=== PATIENT | male | born 1965 | race Caucasian/White ===

== ENCOUNTER 2024-06-13 09:14 | Outpatient (AMB) | payer BC, SELFPAY ==
--- NOTE | 2024-06-13 09:15 | A.SPINEOV_ITS ---
Vital Signs 06/13/24 09:23 Height 5 ft 6 in Weight 270 lb BMI 43.6 Intake Visit Reasons: lower back pain Intake Note: Mr. Ortiz is here today c/o Extreme low back pain that radiates down to the legs. Software Quality Manager Required: No Allergies amoxicillin Allergy (Severe, Verified 06/13/24 09:25) Stomach Upset Physical Exam Vital Signs: BMI result Body Mass Index 43.6 Assessment & Plan Assessment & Plan (1) Neurogenic claudication: Code(s): R29.818 - Other symptoms and signs involving the nervous system Category: Medical Plan Dear colleague Thank you for referring Patrick Ortiz to the office today with a chief complaint of bilateral leg pain. 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 The symptoms have been going on for decades. Sitting down improves the symptoms. He exhausted all forms of conservative treatments including multiple cortisone shots. I saw him in my previous clinic and was not able to establish a surgical cause for symptoms. He returns to my clinic for another second-look as he can not longer take the pain. PMH: None Medications: None Allergies: Amoxicillin Social history: Employed Physical Exam: Pleasant male height 5'6 weight 270 lb. No neurological deficits for motor sensation or reflexes. Straight leg raise is negative. Radiological Studies: MRI done at [facility] shows mild degenerative changes. More importantly, there is no central or foraminal stenosis. Impression/Plan: This patient is clinically suffering from neurogenic claudication without radiological stenosis. Unfortunately, I do not have a surgical option. I will refer him to our pain management team to see if he is a candidate for a spinal cord stimulator Thank you for allowing me to participate in your patients care. total time spent was 30 minutes in counseling ,coordination of plan, personal review of imaging, surgical decision making and subsequent plan Johnnie Sousa MD, PhD Spine Fellowship Trained Neurosurgeon Director, [facility] Orders: Referrals Pain Management Referral R29.818 - Other symptoms and signs involving the nervous system Coding Level of Care Code New Pt Level 3 (18225) Diagnoses Neurogenic claudication R29.818
[2024-06-13 09:23] VITALS: BMI 43.6
--- OUTSIDE RECORDS SUMMARY | 2024-06-13 09:40 | XMS_ITS | Clinical Summary ---
Author Organization [facility] Address [address] [place] [address] Care Team Providers Care Water Rights Specialist Name Role Phone Ashley Fam MD Primary Care Provider [phone] Social History Tobacco Use Types Packs/Day Years Used Date Smoking Tobacco: Never Assessed Sex and Gender Information Value Date Recorded Sex Assigned at Not on file Gender Identity Not on file Sexual Orientation Not on file Plan of Treatment Health Maintenance Due Date Last Done Comments Hepatitis C Screening 1965 COVID-19 Vaccine (#1) 02/12/1964 Depression Screening 1975 Preventative Health Evaluation 08/12/1981 DTap / Tdap / Td (1 - Tdap) 08/12/1982 Colon Cancer Screening (Colonoscopy) 08/12/2008 Shingrix-Zoster Vaccine (1 of 2) 08/12/2013 Influenza Vaccine (#1) 2023 RSV Adult > 60+ Yrs or Pregn ant (1 - 1-dose 75+ series) 08/12/2038 Hepatitis B Vaccines Aged Out No long er eligible based on patient's age to complete this topic Pneumococcal Vaccine Aged Out No long er eligible based on patient's age to complete this topic RSV Ped < 20 months Aged Out No longe r eligible based on patient's age to complete this topic Care Teams Water Rights Specialist Relationship Specialty Start Date End Date Ashley Fam MD [address] [facility] [address] [place] [address] PCP - General Rehabilitation Services Manager 03/31/20
--- OUTSIDE RECORDS SUMMARY | 2024-06-13 09:40 | XMS_ITS | Clinical Summary ---
Author Organization [facility] Address [address] [place] [address] Care Team Providers Care Salesperson Toy Trains And Accessories Name Role Phone Dena Bansal MD Primary Care Provider [phone] Social History Tobacco Use Types Packs/Day Years Used Date Smoking Tobacco: Never Assessed Sex and Gender Information Value Date Recorded Sex Assigned at Not on file Legal Sex Male 9:17 PM EST Gender Identity Not on file Sexual Orientation Not on file Plan of Treatment Health Maintenance Due Date Last Done Comments DTaP,Tdap,and Td Vaccines (1 - Tdap) 08/12/1982 Pneumococcal Vaccine: 50+ Ye ars (1 of 1 - PCV) 08/12/2013 Zoster Vaccines (1 of 2) 08/12/2013 Cholesterol Screening (Lipid Panel) 04/01/2022 Colorectal Cancer Screening: Colonoscopy 04/01/2022 Depression Screening 04/01/2022 HIV Screening 04/01/2022 Hepatitis C Screening 04/01/2022 Social Influencers of Health Screening 04/01/2022 COVID-19 Vaccine ( - 2023-2 5 season) 2023 Influenza Vaccine (#1) 2023 RSV Immunization Patients 60 + Years Old (1 - 1-dose 75+ series) 08/12/2038 HIB Vaccines Aged Out No longer eligi ble based on patient's age to complete this topic HPV Vaccines Aged Out No longer eligi ble based on patient's age to complete this topic Hepatitis A Vaccines Aged Out No long er eligible based on patient's age to complete this topic Hepatitis B Vaccines Aged Out No long er eligible based on patient's age to complete this topic IPV Vaccines Aged Out No longer eligi ble based on patient's age to complete this topic MMR Vaccines Aged Out No longer eligi ble based on patient's age to complete this topic Meningococcal ACWY Vaccine Aged Out N o longer eligible based on patient's age to complete this topic Meningococcal B Vacine Aged Out No lo nger eligible based on patient's age to complete this topic Pneumococcal Vaccine: Pediat rics (0 to 5 Years) and At-Risk Patients (6 to 64 Years) Aged Out No longer eligible b ased on patient's age to complete this topic RSV Immunization Patients Un stewart 20 months Aged Out No longer eligible b ased on patient's age to complete this topic Varicella Vaccines Aged Out No longer eligible based on patient's age to complete this topic Care Teams Salesperson Toy Trains And Accessories Relationship Specialty Start Date End Date Dena Bansal MD [address] [facility] PCP - General 06/29/05
--- OUTSIDE RECORDS SUMMARY | 2024-06-13 09:40 | XMS_ITS | Referral Summary ---
Author Organization [facility] Address [address] [id number] Care Team Providers Care Slot Shift Manager Name Role Phone Ashley Fam Primary Care Provider [phone] Allergies Active Allergy Reactions Criticality Noted Date Comments Amoxicillin Vomiting Medium 08/14/2021 Shellfish Containing Products Anaphylaxis High 01/17/2022 Other shellfish okay Medications doxycycline (VIBRA-TABS) 100 mg tablet Take 2 tablet (Oral) 1 time per day for 1 days 2 tablet 02/16/2017 12:25 PM EDT 02/14/2017 Active barium sulfate (READI-CAT 2) 2.1% 2% suspension Drink first bottle [address] scan. Drink second bottle [address] scan. 900 mL 08/06/2017 Active clindamycin (CLEOCIN) 300 mg capsule Take 2 capsules (600 mg total) by mouth one hour prior to dental appointment. 10 capsule 1 11/14/2018 1:37 PM EDT 10/23/2018 Active magic mouthwash (lidocaine-maal ox-diphenhydrAM INE) 1:1:1 Swish and spit with 10mL by mouth every 4 hours as needed for stomatitis. 240 mL 05/19/2020 5:50 PM EST 05/19/2020 Active ibuprofen (MOTRIN) 200 mg tablet Take 800 mg by mouth. 03/17/2021 Active cyclobenzaprine (FLEXERIL) 10 mg tablet Take 1 tablet (10 mg total) by mouth 2 times a day as needed for muscle spasms. 14 tablet 01/29/2024 Active Social History Tobacco Use Types Packs/Day Years Used Date Smoking Tobacco: Some Days Cigarettes 0.3 0.5 Smokeless Tobacco: Never Tobacco Cessation:Ready to Q uit: Not Asked; Counseling Given: Not Answered Alcohol Use Standard Drinks/Week Comments Yes 2 (1 standard drink = 0.6 oz pur e alcohol) Sex and Gender Information Value Date Recorded Sex Assigned at Male 04/24/2023 3:25 PM EST Legal Sex Male 1:31 PM EDT Gender Identity Male 04/24/2023 3:25 PM EST Sexual Orientation Straight 04/24/2023 3: 25 PM EST Last Filed Vital Signs Vital Sign Reading Time Taken Comments Blood Pressure 138/88 01/29/2024 6:41 PM EDT Pulse 68 01/29/2024 6:41 PM EDT Temperature 36.6 ??C (97.9 ??F) 01/29/2024 6:41 PM ED T Respiratory Rate 16 01/29/2024 6:41 PM EDT Oxygen Saturation 97% 01/29/2024 6:41 PM EDT Inhaled Oxygen Concentration - - Weight 120.7 kg (266 lb) 01/29/2024 6:27 PM EDT Height 170.2 cm (5' 7 ) 08/14/2021 10:16 AM EDT Body Mass Index 41.66 08/14/2021 10:16 AM EDT Plan of Treatment Not on file Insurance [facility] HMO/POS Care Teams Slot Shift Manager Relationship Specialty Start Date End Date Ashley Fam [address] [place] [address] [address] [place] [address] PCP - General 08/14/21
--- OUTSIDE RECORDS SUMMARY | 2024-06-13 09:40 | XMS_ITS | Clinical Summary ---
Author Organization [facility] Address [address] [id number] Care Team Providers Care Real Estate Management Specialist Name Role Phone Ashley Fam Primary Care Provider [phone] Allergies Active Allergy Reactions Criticality Noted Date [...] 08/14/2021 10:16 AM EDT Plan of Treatment Health Maintenance Due Date Last Done Comments Cologuard 1965 Colon Cancer Screening 1963 Colonoscopy 1963 FOBT / Fit Test 1963 HIV Screening 1963 Hepatitis C Screening 1963 Sigmoidoscopy 1963 Pneumococcal Vaccine: Pediatric (0-5 Years) and At-Risk Patients (6-50 Years) (2 of 2 - PCV) 06/09/2010 06/09/2009 Zoster Vaccines (1 of 2) 08/12/2013 DTaP,Tdap,and Td Vaccines (2 - Td or Tdap) 05/19/2023 05/19/2013 RSV Vaccine (60+ years old and patients) (1 - Risk 60-74 years 1-dose series) 2023 COVID-19 Vaccine (3 - 2023- season) 2023 06/30/2020, 06/10/2020 Influenza Vaccine (#1) 2023 , 03/01/2022, 04/12/2021, Additional history exists Alcohol/Substance Use Screening 04/30/2024 Depression Screening and Follow-Up 04/30/2024 Social Drivers of Health Annual Screening 04/30/2024 Hepatitis B Vaccines Aged Out No long er eligible based on patient's age to complete this topic Insurance [facility] HMO/POS Care Teams Real Estate Management Specialist Relationship Specialty Start Date End Date Ashley Fam [address] [place] [address] [address] [place] [address] PCP - General 08/14/21
== END 2024-06-13 09:48 | disposition home or self-care (01) ==
PROVIDERS: PCP Internal Medicine; Visit Provider Neurological Surgery
DX: R29.818 Other symptoms and signs involving the nervous system (principal)
CPT/HCPCS: 99203

== ENCOUNTER → 2024-06-13 09:14 | Outpatient (BNVA) | payer BC, SELFPAY | PROVIDERS: PCP Internal Medicine; Visit Provider Neurological Surgery ==

== ENCOUNTER 2024-08-11 10:15 | Outpatient (AMB) | payer BC, SELFPAY ==
[2024-08-11 10:34] VITALS: BP 156/89; PULSE 100; O2SAT 98; BMI 44.2
--- NOTE | 2024-08-11 10:34 | A.OFFVIS_ITS ---
Vital Signs 08/11/24 10:34 Height 5 ft 7 in Weight 282 lb 4 oz BMI 44.2 BP 156/89 H Blood Pressure Location Rt brachial Position Sitting Pulse 100 Pulse Source Pulse Oximeter Pulse Oximetry (%) 98 Oxygen Delivery Method Room Air Intake Visit Reasons: Other symptoms involving the nervous stem Composition Board Press Operator Required: No Accompanied by: Self / Same As Patient Allergies amoxicillin Allergy (Severe, Verified 08/11/24 10:35) Stomach Upset HPI HPI Other symptoms involving the nervous stem: Details: History of Present Illness The patient is a 58-year-old male presenting with chronic pain management and evaluation. He reports suffering from chronic pain affecting his low back, left knee, and left shoulder for many years, with exacerbations exacerbating during standing, walking, or engaging in sports activities. The pain is rated at a severity of 10/10 at night and 8/10 during the morning. His occupation as a nurse, which involves extensive standing, augments the pain, resulting in numbness and a prohibitive effect on his daily activities. Over the years, he has tried various treatments, including nerve blocks and injections which offered temporary relief, but the pain relapsed. He recently quit smoking and attempted physical therapy, currently refraining from any pain medications as previous use of oxycodone was ineffective. An MRI in 2023 indicated diffuse disc bulges at L3-4 and L4-5 with substantial loss of disc space at T12-L1 among other issues. Following the removal of a lap band due to esophagitis, which initially resulted in substantial weight loss, he experienced weight regain and is endeavoring in weight loss anew. Discussion with Dr. Cespedes had surfaced a potential spinal cord stimulator implantation; however, verifying other avenues for addressing his pain through review of his MRI images is underway to possibly avoid this invasive intervention. Pain Description - Low back pain primarily on the right side, with concurrent left knee and left shoulder pain. - Pain is pronounced at 10/10 during nighttime, and around 8/10 in the morning. - Standing, walking, and sporting activities exacerbate the pain. - Pain interferes with work, necessitating regular breaks. - History of nerve blocks and injections provided temporary relief. Physical Exam Results - MRI (2023): Diffuse disc bulges at L3-4 and L4-5, severe loss of disc space at T12-L1, sacralization of L5 vertebral body, degenerative endplate changes noted. Pain Management - Affect: Not specifically discussed. - Analgesia: The patient currently not taking medications; prior oxycodone use was ineffective. - Adverse Effects: Not specifically discussed. - Activities of Daily Living: Pain affects ability to perform job duties as a nurse and routine activities. - Aberrant Drug Related Behaviors: None reported. [facility] Social History (Updated 08/11/24 @ 10:35 by Valencia Soto) Alcohol intake: current Alcohol intake frequency: a few times a week Patient Tobacco Use Status: Former Tobacco user Physical Exam Vital Signs: Last Vital Signs Pulse 100 08/11/24 10:34 BP 156/89 H 08/11/24 10:34 Pulse Ox 98 08/11/24 10:34 Oxygen Delivery Method Room Air 08/11/24 10:34 BMI result Body Mass Index 44.2 Assessment & Plan Assessment & Plan (1) Lower back pain: Code(s): M54.50 - Low back pain, unspecified Category: Medical Plan Plan We decided to obtain the patient's MR images for review to consider non-invasive pain management options before proceeding with a spinal cord stimulator. Evaluation of weight management strategies is integral due to the correlation between weight and pain severity, given the history of pain mitigation through weight reduction. Weightloss focus is on non-surgical options contingent upon completion of thyroid and arterial evaluations to facilitate weight management medication consideration. The patient should ensure that the imaging disc is accessible for review to guide future pain management plans. Further consultations will be scheduled based on imaging findings and progress in lifestyle modifications. Patient was informed and verbally consented to the use of an ambient scribe for clinic note documentation during this visit. Discussion Notes During this consultation, I discussed potential interventions and emphasized the importance of evaluating MR images to potentially identify treatment options beyond a spinal cord stimulator. The focus is on alleviating pain through weight management, particularly given the previous success with weight loss in reducing pain symptoms. Risks and benefits of a spinal cord stimulator were briefly outlined as an option in the event conservative management proves ineffective. The necessity of securing reliable imaging for review was underlined, clarifying its role in guiding subsequent therapy options. We discussed the importance of controlling weight to improve mechanical stress on affected areas, recognizing weight reduction as cardinal to the non-surgical management plan proposed. Patient consented to the suggested imaging review and subsequent discussions to deliberate on a possible non-invasive management avenue. Patient Instructions - Provide a copy of your MR images for review. - Focus on weight management strategies to potentially alleviate pain. - Complete thyroid and artery evaluations for potential weight management medication. - Follow up for consultation upon obtaining imaging review and discussing potential non-invasive options. - Monitor pain levels and report any significant changes. - Consider adjustments in daily activities to minimize pain exacerbation. - Engage in prescribed physical activity routines as tolerated. Coding Level of Care Code New Pt Level 4 (93395) Diagnoses Lower back pain M54.50
--- OUTSIDE RECORDS SUMMARY | 2024-08-11 11:42 | XMS_ITS | Continuity of Care Document ---
Author Organization [facility] Address [address] [place] [address] [address] [place] [address] Phone Care Team Providers Care Fish Filleter Name Role Phone Roverto JORGE, CATALINO, Evangelista GRIGSBY Unavailable U navailable Advance Directives Directive Yes / No Effective Date File Name No Information Encounters Encounter Description Practice Location Reason(s) For Visit Diagnoses Date Provider Providers Copied on Encounter [facility], [address] [place] [address] [address], [place], [id number], tel:[phone] [address] No Information 4 Roverto JORGE, CALISTA BAE. [facility] [address], [place], [place], [id number] , [place]. tel:[phone] Family History Family Member Type Diagnosis Age At Onset No Information Payers Payer name Insurance type Covered constitution party ID Authoriza tion(s) No Information Social History Type Description Quantity Date Captured Comments Sex Male Smoking Status No Information Chief Complaint And Reason For Visit No Information Reason For Referral Reason For Referral No Information History Of Present Illness Encounter Date Complaint History Of Prese nt Illness No Information Functional Status Date Functional Assessmen t No Information Instructions Date Instruction Additional Infor mation No Information Assessments Type Assessment Date No Information Patient Care Teams Name Effective Dates (start - stop) Status Members No Information
--- OUTSIDE RECORDS SUMMARY | 2024-08-11 11:42 | XMS_ITS | Clinical Summary ---
Author Organization [facility] Address [address] [place] [address] Care Team Providers Care Immigration Law Specialist Name Role Phone Ashley Fam MD Primary Care Provider Social History Tobacco Use Types Packs/Day Years [...] age to complete this topic Care Teams Immigration Law Specialist Relationship Specialty Start Date End Date Ashley Fam MD [address] [facility] [address] [place] [address] PCP - General Funding Analyst 03/31/20
--- OUTSIDE RECORDS SUMMARY | 2024-08-11 11:42 | XMS_ITS | Clinical Summary ---
Author Organization [facility] Address [address] [id number] Care Team Providers Care Cereal Miller Name Role Phone Ashley aFm Primary Care Provider [phone] Allergies Active Allergy Reactions Criticality Noted Date [...] C Screening 1963 Sigmoidoscopy 1965 Pneumococcal Vaccine: 50+ Years (2 of 2 - PCV) 06/09/2010 06/09/2009 Zoster Vaccines (1 of 2) 08/12/2013 DTaP,Tdap,and Td Vaccines (2 - Td or Tdap) 05/19/2023 05/19/2013 RSV Vaccine (60+ years old and patients) (1 - Risk 60-74 years 1-dose series) 2023 COVID-19 Vaccine (3 - season) 2023 06/30/2020, 06/10/2020 Alcohol/Substance Use Screening 04/30/2024 Depression Screening and Follow-Up 04/30/2024 Social Drivers of Health Annual Screening 04/30/2024 Influenza Vaccine (Season Ended) 2024 04/07/2023, 03/01/2022, 04/12/2021, Additional history exists Hepatitis B Vaccines Aged Out No long er eligible based on patient's age to complete this topic Insurance [facility] HMO/POS Care Teams Cereal Miller Relationship Specialty Start Date End Date Ashley Fam [address] [place] [address] [address] [place] [address] PCP - General 08/14/21
--- OUTSIDE RECORDS SUMMARY | 2024-08-11 11:42 | XMS_ITS | Clinical Summary ---
Author Organization [facility] Address [address] [place] [address] Phone Care Team Providers Care Network Systems Analyst Name Role Phone Ashley Fam MD Primary Care Provider [phone] Allergies Active Allergy Reactions Criticality Noted Date Comments Amoxicillin Nausea And Vomiting Medium 08/14/2021 Other Reaction(s): severe GI, vomiting, diarrhea Shellfish Containing Products Anaphylaxis High 01/17/2022 Other shellfish okay Medications albuterol HFA (PROAIR HFA ; PROVENTIL HFA ; VENTOLIN HFA) 90 mcg/actuation inhaler Inhale 2 puffs by mouth every 4 (four) hours if needed for shortness of breath or wheezing. 1 each 5 Active Encounters Date Type Department Care Team Description 06/15/2024 11:36 AM EST - 06/15/2024 2:03 PM EST Emergency [facility] Emergency [address] [place] [address] Sai Bettencourt MD Influenza (Primary Dx) Discharge Disposition: Home or Self Care from Last 3 Months Medical History Medical History Date Comments Arthritis Social History Tobacco Use Types Packs/Day Years Used Date Smoking Tobacco: Every Day Cigarettes Smokeless Tobacco: Never Tobacco Cessation:Ready to Q uit: Not Asked; Counseling Given: Not Answered Sex and Gender Information Value Date Recorded Sex Assigned at Male 06/15/2024 10:57 AM EST Legal Sex Male 9:17 PM EST Gender Identity Male 06/15/2024 10:57 AM EST Sexual Orientation Choose not to disclose 2024 10:57 AM EST Obstetrics History Last Filed Vital Signs Vital Sign Reading Time Taken Comments Blood Pressure 126/77 06/15/2024 10:42 AM EST Pulse 81 06/15/2024 10:42 AM EST Temperature 36.9 ??C (98.4 ??F) 06/15/2024 10:[address] Respiratory Rate 20 06/15/2024 10:42 AM EST Oxygen Saturation 93% 06/15/2024 10:42 AM EST Inhaled Oxygen Concentration - - Weight 122 kg (270 lb) 06/15/2024 10:42 AM EST Height 170.2 cm (5' 7 ) 06/15/2024 10:42 AM EST Body Mass Index 42.29 06/15/2024 10:42 AM EST Plan of Treatment Health Maintenance Due Date Last Done Comments Pneumococcal Vaccine: 50+ Years (2 of 2 - PCV) 06/09/2010 06/09/2009 Pneumococcal Vaccine: Pediatrics (0 to 5 Years) and At-Risk Patients (6 to 64 Years) (2 of 2 - PCV) 06/09/2010 06/09/2009 Zoster Vaccines (1 of 2) 08/12/2013 Cholesterol Screening (Lipid Panel) 04/01/2022 Colorectal Cancer Screening: Colonoscopy 04/01/2022 Depression Screening 04/01/2022 HIV Screening 04/01/2022 Hepatitis C Screening 04/01/2022 Social Influencers of Health Screening 04/01/2022 RSV Immunization Adult Patients (1 - Risk 60-74 years 1-dose series) 2023 COVID-19 Vaccine (3 - 2023- season) 2023 06/30/2020, 06/10/2020 DTaP,Tdap,and Td Vaccines (3 - Td or Tdap) 02/04/2034 02/05/2024, 05/19/2013 Influenza Vaccine Completed 02/05/2024, , 03/01/2022, Additional history exists HIB Vaccines Aged Out No longer eligi [...] age to complete this topic Meningococcal B Vaccine Aged Out No l onger eligible based on patient's age to complete this topic RSV Immunization Patients Under 20 months Aged Out No longer eligible based on patient's age to complete this topic Varicella Vaccines Aged Out No longer eligible based on patient's age to complete this topic Procedures Procedure Name Priority Date/Time Associated Diagnosis Comments ECG ANNOTATED 06/16/2024 RESPIRATORY VIRUS PANEL MOLECULAR STUDY STAT 06/15/2024 12:25 PM EST XR CHEST 2 VIEWS STAT 06/15/2024 11:2 3 AM EST CBC WITH AUTO DIFFERENTIAL STAT 06/15/2024 11:15 AM EST BASIC METABOLIC PANEL STAT 06/15/2024 11:15 AM EST CBC AND DIFFERENTIAL STAT 06/15/2024 11:15 AM EST ECG 12-LEAD STAT 06/15/2024 11:09 AM EST from Last 3 Months Results * ECG-Annotated (06/16/2024) us Provider Onbase MD ECG ORDERABLES Final Result * (ABNORMAL) Respiratory virus panel molecular study (06/15/2024 12:25 PM EST) Adenovirus Detection by PCR Not Detected Not Detected LAB MICROBIOLOGY METHOD 06/15/2024 1:29 PM EST [facility] Influenza B PCR Not Detected Not Detected LAB MICROBIOLOGY METHOD 06/15/2024 1:29 PM [facility] Coronavirus 229E Not Detected Not Detected LAB MICROBIOLOGY METHOD 06/15/2024 1:29 PM EST [facility] Coronavirus HKU1 Not Detected Not Detected LAB MICROBIOLOGY METHOD 06/15/2024 1:29 PM EST [facility] Coronavirus OC43 Not Detected Not Detected LAB MICROBIOLOGY METHOD 06/15/2024 1:29 PM [facility] Coronavirus NL63 Not Detected Not Detected LAB MICROBIOLOGY METHOD 06/15/2024 1:29 PM [facility] Parainfluenza Virus 1 Not Detected Not Detected LAB MICROBIOLOGY METHOD 06/15/2024 1:29 PM [facility] Parainfluenza Virus 2 Not Detected Not Detected LAB MICROBIOLOGY METHOD 06/15/2024 1:29 PM [facility] Parainfluenza Virus 3 Not Detected Not Detected LAB MICROBIOLOGY METHOD 06/15/2024 1:29 PM [facility] Parainfluenza Virus 4 Not Detected Not Detected LAB MICROBIOLOGY METHOD 06/15/2024 1:29 PM [facility] RSV PCR Not Detected Not Detected LAB MICROBIOLOGY METHOD 06/15/2024 1:29 PM [facility] Human Metapneumovirus A and B Not Detected Not Detected LAB MICROBIOLOGY METHOD 06/15/2024 1:29 PM [facility] Rhinovirus/Entero virus Not Detected Not Detected LAB MICROBIOLOGY METHOD 06/15/2024 1:29 PM [facility] Bordetella pertussis Not Detected Not Detected LAB MICROBIOLOGY METHOD 06/15/2024 1:29 PM [facility] Bordetella parapertussis Not Detected Not Detected LAB MICROBIOLOGY METHOD 06/15/2024 1:29 PM [facility] Influenza A H1N1 PDM09 Detected(A ) Not Detected LAB MICROBIOLOGY METHOD 06/15/2024 1:29 PM [facility] Mycoplasma pneumo by PCR Not Detected Not Detected LAB MICROBIOLOGY METHOD 06/15/2024 1:29 PM [facility] Chlamydia pneumoniae Not Detected Not Detected LAB MICROBIOLOGY METHOD 06/15/2024 1:29 PM [facility] SARS COV-2 Not Detected Not Detected LAB MICROBIOLOGY METHOD 06/15/2024 1:29 PM [facility] Swab Both anterior nares / Unknown Non-blood Collection / Unknown 06/15/2024 12:25 PM EST 06/15/2024 12:32 PM EST Narrative [facility] - 06/15/2024 1:29 PM EST Testing was performed using the [employer] Respiratory Pathogen PCR Assay. All results must be correlated with the clinical findings. Results should not be used as the sole basis for diagnosis. False Negative results may occur from the presence of sequence variants in the region targeted by the assay or the presence of inhibitors. Results may be affected by concurrent antiviral/antimicrobial therapy or levels of organisms that are below the limit of detection. us Sergey BELTRE LAB MICROBIOLOGY - GENERAL OR DERABLES Final Result [facility] [address] [place] [address], * XR Chest 2 Views (06/15/2024 11:23 AM EST) Anatomical Region Laterality Modality Body Radiographic Jessica ging 06/15/2024 11:3 3 AM EST Impressions 06/15/2024 11:34 AM EST FINDINGS/IMPRESSION: NO ACUTE FINDINGS. Borderline heart size with normal pulmonary vascularity. ??Lungs are clear and costophrenic angles are sharp. ??No acute osseous abnormality. -------- FINAL REPORT -------- Dictated By: Phillip Arechiga Dictated Date: 06/15/2024 11:33 ET Assigned Physician: Phillip Arechiga Reviewed and Electronically Signed By: Phillip Arechiga Signed Date: 06/15/2024 11:34 ET Workstation ID: [id number] Transcribed By: Self Edit Transcribed Date: 06/15/2024 11:33 ET Narrative 06/15/2024 11:34 AM EST XR CHEST 2 VIEWS INDICATION: Cough, persistent TECHNIQUE: XR CHEST 2 VIEWS COMPARISON: No priors available. Procedure Note Phillip Arechiga MD - 06/15/2024 XR CHEST 2 VIEWS INDICATION: Cough, persistent TECHNIQUE: XR CHEST 2 VIEWS COMPARISON: No priors available. IMPRESSION: FINDINGS/IMPRESSION: NO ACUTE FINDINGS. Borderline heart size with normal pulmonary vascularity. Lungs are clearand costophrenic angles are sharp. No acute osseous abnormality. -------- FINAL REPORT -------- Dictated By: Phillip Arechiga Dictated Date: 06/15/2024 11:33 ET Assigned Physician: Phillip Arechiga Reviewed and Electronically Signed By: Phillip Arechiga Signed Date: 06/15/2024 11:34 ET Workstation ID: [id number] Transcribed By: Self Edit Transcribed Date: 06/15/2024 11:33 ET us Sai Bettencourt MD IMG XR PROCEDURES Final Res ult * (ABNORMAL) CBC auto differential (06/15/2024 11:15 AM EST) WBC 4.9 4.8 - 10.8 K/mcL LAB HEMETOLOGY METHOD 06/15/2024 11:40 AM [facility] RBC 5.10 4.50 - 5.50 M/mcL LAB HEMETOLOGY METHOD 06/15/2024 11:40 AM [facility] Hemoglobin 17.1 13.5 - 17.5 g/dL LAB HEMETOLOGY METHOD 06/15/2024 11:40 AM [facility] Hematocrit 52.6 42.0 - 54.0 % LAB HEMETOLOGY METHOD 06/15/2024 11:40 AM [facility] MCV 102.3(H) 79.0 - 98.0 FL LAB HEMETOLOGY METHOD 06/15/2024 11:40 AM [facility] MCH 33.3(H) 27.0 - 32.0 pcg LAB HEMETOLOGY METHOD 06/15/2024 11:40 AM [facility] MCHC 32.5 32.0 - 37.0 g/dL LAB HEMETOLOGY METHOD 06/15/2024 11:40 AM [facility] RDW 14.5 11.0 - 15.0 % LAB HEMETOLOGY METHOD 06/15/2024 11:40 AM [facility] Platelets 178 130 - 400 K/mcL LAB HEMETOLOGY METHOD 06/15/2024 11:40 AM [facility] MPV 10.8 7.0 - 11.0 FL LAB HEMETOLOGY METHOD 06/15/2024 11:40 AM [facility] NRBC 0.0 <1.0 % LAB HEMETOLOGY METHOD 06/15/2024 11:40 AM [facility] NRBC Absolute 0.00 <0.10 K/mcL LAB HEMETOLOGY METHOD 06/15/2024 11:40 AM [facility] Neutrophils Relative 46.8 % LAB HEMETOLOGY METHOD 06/15/2024 11:40 AM [facility] Lymphocytes Relative 37.2 % LAB HEMETOLOGY METHOD 06/15/2024 11:40 AM [facility] Monocytes Relative 11.5 % LAB HEMETOLOGY METHOD 06/15/2024 11:40 AM [facility] Eosinophils Relative 3.9 % LAB HEMETOLOGY METHOD 06/15/2024 11:40 AM [facility] Basophils Relative 0.4 % LAB HEMETOLOGY METHOD 06/15/2024 11:40 AM [facility] Immature Granulocytes Relative 0.2 % LAB HEMETOLOGY METHOD 06/15/2024 11:40 AM [facility] Neutrophils Absolute 2.27 1.50 - 7.00 K/mcL LAB HEMETOLOGY METHOD 06/15/2024 11:40 AM [facility] Lymphocytes Absolute 1.81 1.00 - 5.00 K/mcL LAB HEMETOLOGY METHOD 06/15/2024 11:40 AM [facility] Monocytes Absolute 0.56 0.20 - 1.00 K/mcL LAB HEMETOLOGY METHOD 06/15/2024 11:40 AM EST [facility] Eosinophils Absolute 0.19 0.00 - 0.50 K/mcL LAB HEMETOLOGY METHOD 06/15/2024 11:40 AM EST [facility] Basophils Absolute 0.02 0.00 - 0.20 K/mcL LAB HEMETOLOGY METHOD 06/15/2024 11:40 AM [facility] Immature Granulocytes Absolute 0.01 0.00 - 0.03 K/mcL LAB HEMETOLOGY METHOD 06/15/2024 11:40 AM [facility] Blood Venous blood specimen / Unknown Venipuncture / Unknown 06/15/2024 11:15 AM EST 06/15/2024 11:36 AM EST us Sai Bettencourt MD LAB BLOOD ORDERABLES Final Result [facility] [address] [place] [address], * (ABNORMAL) Basic metabolic panel (06/15/2024 11:15 AM EST) Sodium 138 133 - 145 mmol/L LAB CHEMISTRY METHOD 06/15/2024 12:05 PM [facility] Potassium 4.5 3.5 - 5.5 mmol/L LAB CHEMISTRY METHOD 06/15/2024 12:05 PM [facility] Chloride 102 96 - 110 mmol/L LAB CHEMISTRY METHOD 06/15/2024 12:05 PM [facility] CO2 34(H) 21 - 32 mmol/L LAB CHEMISTRY METHOD 06/15/2024 12:05 PM [facility] Anion Gap 2(L) 3 - 11 LAB CHEMISTRY METHOD 06/15/2024 12:05 PM [facility] Glucose 109(H) 70 - 100 mg/dL LAB CHEMISTRY METHOD 06/15/2024 12:05 PM EST [facility] BUN 16 5 - 25 mg/dL LAB CHEMISTRY METHOD 06/15/2024 12:05 PM EST [facility] Creatinine 1.11 0.70 - 1.30 mg/dL LAB CHEMISTRY METHOD 06/15/2024 12:05 PM [facility] eGFR 76 >=60 mL/min/1. 73m2 LAB CHEMISTRY METHOD 06/15/2024 12:05 PM EST [facility] Comment:Calculation based on the??Chronic Kidney Disease Epidemiology Collaboration (CKD-EPI) equation refit??without adjustment for race. BUN/Creatinine Ratio 14.4 LAB CHEMISTRY METHOD 06/15/2024 12:05 PM EST [facility] Calcium 9.6 8.5 - 10.5 mg/dL LAB CHEMISTRY METHOD 06/15/2024 12:05 PM [facility] Blood Venous blood specimen / Unknown Venipuncture / Unknown 06/15/2024 11:15 AM EST 06/15/2024 11:36 AM EST us Sai Bettencourt MD LAB BLOOD ORDERABLES Final Result [facility] [address] [place] [address], * ECG 12 lead (06/15/2024 11:09 AM EST) Ventricular Rate ECG 80 BPM GEMUSE Atrial Rate 80 BPM GEMUSE P-R Interval 160 ms GEMUSE QRS Duration 102 ms GEMUSE Q-T Interval 400 ms GEMUSE QTc 461 ms GEMUSE P Wave Horn[place] 33 degrees GEMUSE R [place] -7 degrees GEMUSE T [place] 19 degrees GEMUSE ECG Interpretation Normal sinus rhythm Normal ECG No previous ECGs available Confirmed by VAISHALI PAGE ([id number]) on 06/15/2024 6:23:41 PM GEMUSE 06/15/2024 11:0 9 AM EST 06/15/2024 6:23 PM EST us Sai Bettencourt MD ECG ORDERABLES Final Resul t GEMUSE from Last 3 Months Insurance [facility] Care Teams Network Systems Analyst Relationship Specialty Start Date End Date Ashley Fam MD [address] [place] [address] PCP - General Internal Medicine 06/15/24
--- OUTSIDE RECORDS SUMMARY | 2024-08-11 11:42 | XMS_ITS | Referral Summary ---
Author Organization [facility] Address [address] [id number] Care Team Providers Care Cartoonist Special Effects Name Role Phone Ashley Fam Primary Care Provider [phone] Allergies Active Allergy Reactions Criticality Noted Date [...] Plan of Treatment Not on file Insurance [facility] HMO/POS Care Teams Cartoonist Special Effects Relationship Specialty Start Date End Date Ashley Fam [address] [place] [address] [address] [place] [address] PCP - General 08/14/21
== END 2024-08-11 11:03 | disposition home or self-care (01) ==
LOC: HO.PMC 10:17
PROVIDERS: PCP Internal Medicine; Referring Provider Neurological Surgery; Visit Provider Internal Medicine
DX: M54.50 Low back pain, unspecified (principal)
CPT/HCPCS: 99204

== ENCOUNTER → 2024-08-11 10:15 | Outpatient (BNVA) | payer BC, SELFPAY | PROVIDERS: PCP Internal Medicine; Referring Provider Neurological Surgery; Visit Provider Internal Medicine ==

== ENCOUNTER 2024-12-11 07:28 | Outpatient (REF) | payer BC, SELFPAY ==
--- NOTE | ~2024-12-11 | FL_ITS ---
EXAMINATION: FL GUIDANCE ONLY HISTORY: M54.50 - Low back pain, unspecified COMPARISON: None available. TECHNIQUE: Fluoroscopy time: 0.1 minute. Cumulative Dose: 4.11 mGy. DAP: 0.578 mGym2 Images: 1. FINDINGS: A fluoroscopic spot film of the lumbar spine in the AP projection demonstrates needles and contrast material in the regions of the right L3-4, L4-5, and L5-S1 facet joints. FL/FL guidance in treatment room IMPRESSION: Fluoroscopy during procedure. Please see procedure report for additional information. Electronically signed by: Evangelista Velázquez MD 12/11/2024 01:47 PM EDT
--- OUTSIDE RECORDS SUMMARY | 2024-12-11 07:30 | XMS_ITS | Clinical Summary ---
Author Organization [facility] Address [address] [id number] Care Team Providers Care Hopper Attendant Name Role Phone Ashley Fam Primary Care Provider [phone] Allergies Active Allergy Reactions Criticality Noted Date [...] 68 01/29/2024 6:41 PM EDT Temperature 36.6 C (97.9 F) 01/29/2024 6:41 PM EDT Respiratory Rate 16 01/29/2024 6:41 PM EDT [...] of Health Annual Screening 04/30/2024 Influenza Vaccine (#1) 2024 , 03/01/2022, 04/12/2021, Additional history exists Hepatitis B Vaccines Aged Out No long er eligible based on patient's age to complete this topic Insurance [facility] HMO/POS Care Teams Hopper Attendant Relationship Specialty Start Date End Date Ashley Fam [address] [place] [address] [address] [place] [address] PCP - General 08/14/21
--- OUTSIDE RECORDS SUMMARY | 2024-12-11 07:30 | XMS_ITS | Clinical Summary ---
Author Organization [facility] Address [address] [place] [phone] Phone Care Team Providers Care Assistant Account Executive Name Role Phone Ashley Fam MD Primary Care Provider Allergies Active Allergy Reactions Criticality Noted Date Comments Amoxicillin Nausea And Vomiting Medium 08/14/2021 Other Reaction(s): severe GI, vomiting, diarrhea Shellfish Containing Products Anaphylaxis High 01/17/2022 Other shellfish okay Medications albuterol HFA (PROAIR HFA ; PROVENTIL HFA ; VENTOLIN HFA) 90 mcg/actuation inhaler Inhale 2 puffs by mouth every 4 (four) hours if needed for shortness of breath or wheezing. 1 each Active Medical History Medical History Date Comments Arthritis [...] 81 06/15/2024 10:42 AM EST Temperature 36.9 C (98.4 F) 06/15/2024 10:42 AM EST Respiratory Rate 20 06/15/2024 10:42 AM EST [...] Panel) 04/01/2022 Colorectal Cancer Screening: Colonoscopy 04/01/2022 HIV Screening 04/01/2022 Hepatitis C Screening 04/01/2022 Social Influencers of Health Screening 04/01/2022 RSV Immunization Adult Patients (1 - Risk 60-74 years 1-dose series) 2023 COVID-19 Vaccine (3 - 2023- season) 2023 06/30/2020, 06/10/2020 Depression Screening 04/30/2024 Influenza Vaccine (#1) 2024 , 04/07/2023, 03/01/2022, Additional history exists DTaP,Tdap,and Td Vaccines (3 - Td or Tdap) 02/04/2034 02/05/2024, 05/19/2013 HIB Vaccines Aged Out No longer eligi [...] patient's age to complete this topic Insurance [facility] Care Teams Assistant Account Executive Relationship Specialty Start Date End Date Ashley Fam MD [address] [place] [address] PCP - General Internal Medicine 06/15/24
--- OUTSIDE RECORDS SUMMARY | 2024-12-11 07:30 | XMS_ITS | Clinical Summary ---
Author Organization [facility] Address [address] [place] [address] Care Team Providers Care Office Director Name Role Phone Ashley Fam MD Primary Care Provider [phone] Social History Tobacco Use Types Packs/Day Years [...] (1 of 2) 08/12/2013 Influenza Vaccine (#1) 2024 RSV Adult > 60+ Yrs or Pregn [...] age to complete this topic Care Teams Office Director Relationship Specialty Start Date End Date Ashley Fam MD [address] [facility] [address] [place] [address] PCP - General Pharmacist Aide 03/31/20
== END 2024-12-11 07:29 | disposition home or self-care (01) ==
LOC: CF 07:28
PROVIDERS: Visit Provider Internal Medicine
DX: M47.816 Spondylosis without myelopathy or radiculopathy, lumbar region (principal); M54.50 Low back pain, unspecified
CPT/HCPCS: 64493; J2003; J2795; Q9967

== ENCOUNTER 2024-12-11 09:37 | Outpatient (AMB) | payer BC, SELFPAY ==
[2024-12-11 09:46] VITALS: BP 121/94; PULSE 96; RESP 16; O2SAT 92; BMI 44.2
--- NOTE | 2024-12-11 09:46 | A.OFFVIS_ITS ---
Vital Signs 12/11/24 09:46 Height 5 ft 7 in Weight 282 lb BMI 44.2 BP 121/94 H Blood Pressure Location Lt brachial Position Sitting Respiration 16 Pulse 96 Pulse Source Pulse Oximeter Pulse Oximetry (%) 92 Oxygen Delivery Method Room Air Intake Visit Reasons: Right L3, L4, L5 MBB Dx Allergies amoxicillin Allergy (Severe, Verified 08/11/24 10:35) Stomach Upset HPI HPI Right L3, L4, L5 MBB Dx: Details: Patient presents for scheduled procedure. Denies any recent cough, cold, infection, fever or other significant changes in medical history since last office visit. [facility] Social History (Updated 08/11/24 @ 10:35 by Valencia Soto) Alcohol intake: current Alcohol intake frequency: a few times a week Patient Tobacco Use Status: Former Tobacco user Physical Exam Vital Signs: Last Vital Signs Pulse 96 12/11/24 09:46 Resp 16 12/11/24 09:46 BP 121/94 H 12/11/24 09:46 Pulse Ox 92 12/11/24 09:46 Oxygen Delivery Method Room Air 12/11/24 09:46 BMI result Body Mass Index 44.2 Office Procedures Details: Lumbar Medial Branch Block, Right L3, L4 medial branches and L5 Dorsal Ramus (2 levels, 3 nerves) After obtaining written consent, pre-procedure blood pressure and pulse were recorded and are in the nursing record for review. The patient was placed in a prone position. The respective lumbosacral area was prepped with chloraprep and draped in sterile fashion. The skin over the target medial branch nerves was anesthetized with 0.5% lidocaine. A 22 gauge 3.5 inch needle was inserted into the target medial branch nerve under fluoroscopic guidance. No paresthesias were elicited with needle placement and aspiration was negative for blood and CSF. Next, 0.2cc of omnipaque 180 was injected to verify positioning in AP and oblique imaging. Next 0.5 ml 0.5% ropivicaine was injected (0.5cc total per level). The identical procedure was performed at the remaining levels. The skin was cleansed and a sterile bandage was applied. Following the procedure the patient's vital signs were stable. The patient tolerated the procedure well and no complications were encountered. Following the procedure the patient's vital signs were stable. The patient was discharged home in good condition with post-procedural instructions. Time Out: Immediately prior to the procedure, the following was verbally confirmed that there is a signed consent form and that the correct patient, planned procedure, site and side are consistent with documentation and that necessary equipment and/or blood products are available prior to the start of the case. Complications: none EBL: <5 cc 40443 - with Fluoroscopy (L3-L4) 25317 - second level with Fluoroscopy (L3-L4-L5) Procedure code (CPT) selection complete Assessment & Plan Assessment & Plan (1) Lumbar spondylosis: Code(s): M47.816 - Spondylosis without myelopathy or radiculopathy, lumbar region Category: Medical Plan Patient is status post right diagnostic L3, L4 medial branches and L5 dorsal ramus diagnostic block. Patient tolerated procedure well and was discharged home in stable condition with discharge instructions. All questions were answered. We will follow-up via telephone or in clinic to assess response to therapy. A follow-up appointment was made during today's visit. Orders: Orders FL guidance in treatment room Today M54.50 - Low back pain, unspecified AMB Medial Branch Block - Lumbar/Sacral Today M47.816 - Spondylosis without myelopathy or radiculopathy, lumbar region Coding Level of Care Code Procedure Only Diagnoses Lumbar spondylosis M47.816 CPT Codes Medial Branch Block Lumbar/Sacral1 - Branch Block Lumb/Sac 1: 56995 - with Fluoroscopy (L3-L4) ([id number]) Medial Branch Block Lumbar/Sacral1 - Branch Block Lumb/Sac 2: 74097 - second level with Fluoroscopy (L3-L4-L5) ([id number])
== END 2024-12-11 10:45 | disposition home or self-care (01) ==
LOC: HO.PMCPRC 09:37
PROVIDERS: PCP Internal Medicine; Visit Provider Internal Medicine
DX: M47.816 Spondylosis without myelopathy or radiculopathy, lumbar region (principal)
CPT/HCPCS: 64494

== ENCOUNTER 2025-01-12 12:11 | Outpatient (AMB) | payer BC, SELFPAY ==
--- NOTE | 2025-01-12 12:13 | A.OFFVIS_ITS ---
Vital Signs 01/12/25 12:14 Height 5 ft 7 in Weight 289 lb BMI 45.3 BP 138/72 Blood Pressure Location Lt brachial Position Sitting Respiration 16 Pulse 84 Pulse Source Pulse Oximeter Pulse Oximetry (%) 95 Oxygen Delivery Method Room Air Intake Visit Reasons: s/p Left Dx L3-L4-L5 MBB Humera from 12/17/24 Risk Assessment Analyst Required: No Allergies amoxicillin Allergy (Severe, Verified 01/12/25 12:16) Stomach Upset Medication List - Last Reconciled 01/12/25 by Megan Piper LPN levothyroxine 100 mcg PO DAILY tirzepatide (Mounjaro) mg subcut HPI HPI s/p Left Dx L3-L4-L5 MBB Humera from 12/17/24: Details: History of Present Illness The patient is a 59-year-old male presenting with low back pain. The pain was addressed with diagnostic bilateral lumbar medial branch blocks, which provided >80% relief for four to five days. The patient reports that the pain relief was significant during this period, although numbness was not alleviated. The patient describes the pain as not constantly nagging during the effective period of the injections, but notes that certain movements could still cause significant discomfort. The patient has been advised to undergo a second round of the same diagnostic injections to confirm the effectiveness before considering radiofrequency ablation. Pain Description - Onset and Timing: Pain relief lasted four to five days after injections - Quality and Character: Pain relief was significant, but numbness persisted - Exacerbating Factors: Certain movements could cause significant discomfort Pain Management - Analgesia: Diagnostic bilateral lumbar medial branch blocks provided significant pain relief for four to five days - Activities of Daily Living: Pain was not constantly nagging during the effective period of the injections [facility] Social History (Updated 08/11/24 @ 10:35 by Valencia Soto) Alcohol intake: current Alcohol intake frequency: a few times a week Patient Tobacco Use Status: Former Tobacco user Physical Exam Vital Signs: Last Vital Signs Pulse 84 01/12/25 12:14 Resp 16 01/12/25 12:14 BP 138/72 01/12/25 12:14 Pulse Ox 95 01/12/25 12:14 Oxygen Delivery Method Room Air 01/12/25 12:14 BMI result Body Mass Index 45.3 Assessment & Plan Assessment & Plan (1) Lumbar spondylosis: Code(s): M47.816 - Spondylosis without myelopathy or radiculopathy, lumbar region Category: Medical Plan Plan Patient was informed and verbally consented to the use of an ambient scribe for clinic note documentation during this visit. 1. Low Back Pain - Plan to perform a second round of diagnostic bilateral lumbar medial branch blocks. - If effective, proceed with radiofrequency ablation of the facet joints. Discussion Notes I discussed with the patient the plan to perform a second round of diagnostic bilateral lumbar medial branch blocks to confirm the effectiveness of the treatment. If the second round is effective, we will proceed with radiofrequency ablation of the facet joints. I explained the procedure of radiofrequency ablation, including the use of a special needle to cauterize the nerve, and reassured the patient that the procedure is typically well-tolerated while the patient is awake. Patient Instructions - Await a phone call to schedule the second round of diagnostic injections. - Understand that radiofrequency ablation will be considered if the second round of injections is effective. Coding Level of Care Code Est Pt Level 3 (28678) Diagnoses Lumbar spondylosis M47.816
[2025-01-12 12:14] VITALS: BP 138/72; PULSE 84; RESP 16; O2SAT 95; BMI 45.3
--- OUTSIDE RECORDS SUMMARY | 2025-01-12 16:46 | XMS_ITS | Clinical Summary ---
Author Organization [facility] Address [address] [id number] Care Team Providers Care Siebel Solution Architect Name Role Phone Ashley Fam Primary Care Provider [phone] Allergies Active Allergy Reactions Criticality Noted Date [...] - Risk 60-74 years 1-dose series) 2023 Alcohol/Substance Use Screening 04/30/2024 Depression Screening and Follow-Up 04/30/2024 Social Drivers of Health Annual Screening 04/30/2024 COVID-19 Vaccine (3 - season) 2024 06/30/2020, 06/10/2020 Influenza Vaccine (#1) 2024 , 03/01/2022, 04/12/2021, Additional history exists Hepatitis B Vaccines Aged Out No long er eligible based on patient's age to complete this topic Insurance [facility] HMO/POS Care Teams Siebel Solution Architect Relationship Specialty Start Date End Date Ashley Fam [address] [place] [address] [address] [place] [address] PCP - General 08/14/21
--- OUTSIDE RECORDS SUMMARY | 2025-01-12 16:46 | XMS_ITS | Clinical Summary ---
Author Organization [facility] Address [address] [place] [id number] Phone Care Team Providers Care Law Librarian Name Role Phone Ashley Fam MD Primary Care Provider [phone] Allergies Active Allergy Reactions Criticality Noted Date [...] - Risk 60-74 years 1-dose series) 2023 Depression Screening 04/30/2024 COVID-19 Vaccine (3 - 2024- season) 2024 06/30/2020, 06/10/2020 Influenza Vaccine (#1) 2024 , 04/07/2023, 03/01/2022, [...] patient's age to complete this topic Insurance [facility] Care Teams Law Librarian Relationship Specialty Start Date End Date Ashley Fam MD [address] [place] [address] PCP - General Internal Medicine 06/15/24
--- OUTSIDE RECORDS SUMMARY | 2025-01-12 16:46 | XMS_ITS | Clinical Summary ---
Author Organization [facility] Address [address] [place] [address] Care Team Providers Care Posting Specialist Name Role Phone Ashley Fam MD Primary Care Provider [phone] Social History Tobacco Use Types Packs/Day Years [...] age to complete this topic Care Teams Posting Specialist Relationship Specialty Start Date End Date Ashley Fam MD [address] [facility] [address] [place] [address] PCP - General Medical Malpractice Paralegal 03/31/20
== END 2025-01-12 12:23 | disposition home or self-care (01) ==
PROVIDERS: PCP Internal Medicine; Visit Provider Internal Medicine
DX: M47.816 Spondylosis without myelopathy or radiculopathy, lumbar region (principal)
CPT/HCPCS: 99213

== ENCOUNTER 2025-04-16 12:25 | Outpatient (AMB) | payer BC, SELFPAY ==
[2025-04-16 12:33] VITALS: BP 124/82; PULSE 103; RESP 16; O2SAT 92
--- NOTE | 2025-04-16 12:33 | MHC.OFFVIS ---
Vital Signs 04/16/25 12:33 BP 124/82 Blood Pressure Location Lt brachial Position Sitting Respiration 16 Pulse 103 H Pulse Source Pulse Oximeter Pulse Oximetry (%) 92 Oxygen Delivery Method Room Air Intake Visit Reasons: Left Dx L3-L4-L5 MBB Fruit Picker Machine Operator Required: No Allergies amoxicillin Allergy (Severe, Verified 04/16/25 12:34) Stomach Upset Medication List - Last Reconciled 04/16/25 by Megan Piper LPN levothyroxine 100 mcg PO DAILY tirzepatide (Mounjaro) mg subcut HPI HPI Left Dx L3-L4-L5 MBB: Details: Patient presented for a diagnostic left medial branch block today. He reports new onset pain on the left side going down his left leg at this point that started recently. He had a recent MRI done that shows a left paracentral disc herniation at the L3 level that is tracking inferiorly. This is more consistent with his current pain presentation. Compared to a facetogenic source. - Appears afebrile. - Alert and oriented. - Mood and affect appropriate. - Follows and participates in conversation appropriately. - Respiratory effort is unlabored. [facility] Social History (Updated 08/11/24 @ 10:35 by Valencia Soto) Alcohol intake: current Alcohol intake frequency: a few times a week Patient Tobacco Use Status: Former Tobacco user Physical Exam Vital Signs: Last Vital Signs Pulse 103 H 04/16/25 12:33 Resp 16 04/16/25 12:33 BP 124/82 04/16/25 12:33 Pulse Ox 92 04/16/25 12:33 Oxygen Delivery Method Room Air 04/16/25 12:33 Assessment & Plan Assessment & Plan (1) Lumbar radiculopathy: Code(s): M54.16 - Radiculopathy, lumbar region Category: Medical Plan We will proceed with a left L3 transforaminal epidural steroid injection as a next step instead of proceeding with a diagnostic left medial branch blocks that were originally scheduled for today. His pain at this time appears more consistent with a radiculopathy due to a left paracentral disc herniation as evidenced on the MRI as opposed to a facet mediated pain on the left side. His original facet medial pain on the right side at this time is relatively under control following the medial branch blocks that he had on the right side. We will request authorization for a left L3 TFESI as a next step in management. Patient is on board with the plan. Orders: Orders FL guidance in treatment room Today M47.816 - Spondylosis without myelopathy or radiculopathy, lumbar region Coding Level of Care Code Est Pt Level 3 (31339) Diagnoses Lumbar radiculopathy M54.16
--- OUTSIDE RECORDS SUMMARY | 2025-04-16 16:14 | XMS_ITS | Encounter Summary ---
Author Organization [facility] Address [address] [place] [address] Care Team Providers Care Tray Server Name Role Phone Ashley Fam MD Primary Care Provider [phone] Encounter Details Date Type Department Care Team (Late st Contact Info) Description 04/16/2025 Lab Requisition [facility] - Main Lab [address] [facility] [place] [address] Gregg Chavez MD [address] [place] [address] Male erectile disorder (CODE) Social History Tobacco Use Types Packs/Day Years Used Date Smoking Tobacco: Every Day Cigarettes Smokeless Tobacco: Never Sex and Gender Information Value Date Recorded Sex Assigned at Male 06/15/2024 10:57 AM EST Legal Sex Male 9:17 PM EST Gender Identity Male 06/15/2024 10:57 AM EST Sexual Orientation Choose not to disclose 2024 10:57 AM EST documented as of this encounter Plan of Treatment Not on file documented as of this encounter Procedures Procedure Name Priority Date/Time Associated Diagnosis Comments TESTOSTERONE FREE, BIOAVAILABLE AND TOTAL Routine 04/16/2025 9:10 AM EST Male erectile disorder (CODE) PROLACTIN Routine 04/16/2025 9:10 AM EST Male erectile disorder (CODE) LUTEINIZING HORMONE Routine 04/16/2025 9 :10 AM EST Male erectile disorder (CODE) FOLLICLE STIMULATING HORMONE Routine 04/16/2025 9:10 AM EST Male erectile disorder (CODE) documented in this encounter Results * Prolactin (04/16/2025 9:10 AM EST) Prolactin 6.90 2.10 - 17.70 ng/mL 04/16/2025 2:[address] [facility] Blood Venous blood specimen / Unknown 04/16/2025 9:10 AM EST 04/16/2025 1:34 PM EST us Gregg Chavez MD LAB BLOOD ORDERABLES Final Resul t [facility] [address] [place] [address], [place] [phone] * Luteinizing hormone (04/16/2025 9:10 AM EST) Luteinizing Hormone 4.8 1.5 - 9.3 mIU/mL 04/16/2025 2:[address] [facility] Blood Venous blood specimen / Unknown 04/16/2025 9:10 AM EST 04/16/2025 1:34 PM EST us Gregg Chavez MD LAB BLOOD ORDERABLES Final Resul t Performing Organization Address City/[facility]/ZIP Co de Phone Number [facility] [address] [place] [address], [place] [phone] * Follicle stimulating hormone (04/16/2025 9:10 AM EST) Follicle Stimulating Hormone 5.4 1.4 - 18.1 mIU/mL 04/16/2025 2:[address] [facility] Blood Venous blood specimen / Unknown 04/16/2025 9:10 AM EST 04/16/2025 1:34 PM EST us Gregg Chavez MD LAB BLOOD ORDERABLES Final Resul t [facility] [address] [place] [address], [place] [phone] * Testosterone free, bioavailable and total (04/16/2025 9:10 AM EST) Testosterone 359 229 - 902 ng/dL 04/16/2025 2:[address] [facility] Comment:Over the counter sup plements containing high doses of biotin may interfere with this assay. If interference is suspected, patients shoud be retested after refraining from biotin supplements for 72 hours. Testosterone, Free 8.5 4.6 - 22.4 ng/dL 04/16/2025 2:[address] [facility] Testosterone, Bioavailable 199 110 - 575 ng/dL 04/16/2025 2:[address] [facility] Sex Hormone Binding 24.1 See Comment nmol/L 04/16/2025 2:[address] [facility] Comment: FEMALES: pre-menopausal 10.8 - >180 post-menopausal 23.2 - 159.1 MALES: 21-49 years 14.6 - 94.6 50-89 years 21.6 - 113.1 CHILDREN: No established reference range Over the counter supplements containing high doses of biotin may interfere with this assay. If interference is suspected, patients should be retested after refraining from biotin supplements for 72 hours. Albumin 4.3 3.2 - 5.0 g/dL 04/16/2025 2:[address] [facility] Blood Venous blood specimen / Unknown 04/16/2025 9:10 AM EST 04/16/2025 1:34 PM EST us Gregg Chavez MD LAB BLOOD ORDERABLES Final Resul t [facility] [address] [place] [address], [place] [phone] documented in this encounter Visit Diagnoses Diagnosis Male erectile disorder (CODE) documented in this encounter Care Teams Tray Server Relationship Specialty Start Date End Date Ashley Fam MD [address] PCP - General Internal Medicine 06/15/24 documented as of this encounter
--- OUTSIDE RECORDS SUMMARY | 2025-04-16 16:14 | XMS_ITS | Clinical Summary ---
Author Organization [facility] Prior to 09/27/24 Address [address] [place] [address] Care Team Providers Care Cushion Gum Applicator Name Role Phone Ashley Fam MD Primary Care Provider [phone] Social History Tobacco Use Types Packs/Day Years [...] age to complete this topic Care Teams Cushion Gum Applicator Relationship Specialty Start Date End Date Ashley Fam MD [address] [address] PCP - General Environmental Projects Advisor 03/31/20
--- OUTSIDE RECORDS SUMMARY | 2025-04-16 16:14 | XMS_ITS | Clinical Summary ---
Author Organization [facility] Address [address] [place] [address] Phone Care Team Providers Care Director Public Service Name Role Phone Ashley Fam MD Primary Care Provider [phone] Allergies Active Allergy Reactions Criticality Noted Date Comments Amoxicillin Nausea And Vomiting Medium 08/14/2021 Other Reaction(s): severe GI, vomiting, diarrhea Shellfish Containing Products Anaphylaxis High 01/17/2022 Other shellfish okay Medications albuterol HFA (PROAIR HFA ; PROVENTIL HFA ; VENTOLIN HFA) 90 mcg/actuation inhaler Inhale 2 puffs by mouth every 4 (four) hours if needed for shortness of breath or wheezing. 1 each Active Encounters Date Type Department Care Team Description 04/16/2025 Lab Requisition [facility] - Main Lab [address] [facility] [place] [address] Gregg Chavez MD Male erectile disorder (CODE) from Last 3 Months Medical History Medical [...] not to disclose 2024 10:57 AM EST Last Filed Vital Signs Vital Sign [...] Health Maintenance Due Date Last Done Comments Colorectal Cancer Screening: Colonoscopy 1965 Pneumococcal Vaccine: 50+ Years (2 of 2 - PCV) 06/09/2010 06/09/2009 RSV Immunization Adult Patients (1 - Risk 50-74 years 1-dose series) 08/12/2013 Zoster Vaccines (1 of 2) 08/12/2013 Cholesterol Screening (Lipid Panel) 04/01/2022 HIV Screening 04/01/2022 Hepatitis C Screening 04/01/2022 Social Influencers of Health Screening 04/01/2022 Depression Screening 04/30/2024 COVID-19 Vaccine (3 - season) [...] Procedure Name Priority Date/Time Associated Diagnosis Comments PROLACTIN Routine 04/16/2025 9:10 AM EST Male erectile disorder (CODE) LUTEINIZING HORMONE Routine 04/16/2025 9 :10 AM EST Male erectile disorder (CODE) FOLLICLE STIMULATING HORMONE Routine 04/16/2025 9:10 AM EST Male erectile disorder (CODE) TESTOSTERONE FREE, BIOAVAILABLE AND TOTAL Routine 04/16/2025 9:10 AM EST Male erectile disorder (CODE) from Last 3 Months Results * Testosterone free, bioavailable and total (04/16/2025 9:10 AM EST) Testosterone 359 229 - 902 ng/dL 04/16/2025 2:45 PM [facility] Comment:Over the counter sup plements containing high doses of biotin may interfere with this assay. If interference is suspected, patients shoud be retested after refraining from biotin supplements for 72 hours. Testosterone, Free 8.5 4.6 - 22.4 ng/dL 04/16/2025 2:45 PM [facility] Testosterone, Bioavailable 199 110 - 575 ng/dL 04/16/2025 2:45 PM [facility] Sex Hormone Binding 24.1 See Comment nmol/L 04/16/2025 2:45 PM [facility] Comment: FEMALES: pre-menopausal 10.8 - >180 [...] - 5.0 g/dL 04/16/2025 2:45 PM EST [facility] Blood Venous blood specimen / Unknown 04/16/2025 9:10 AM EST 04/16/2025 1:34 PM EST us Gregg Chavez MD LAB BLOOD ORDERABLES Final Resul t [facility] [address] [place] [address], [place] [phone] * Prolactin (04/16/2025 9:10 AM EST) Prolactin 6.90 2.10 - 17.70 ng/mL 04/16/2025 2:44 PM EST [facility] Blood Venous blood specimen / Unknown 04/16/2025 9:10 AM EST 04/16/2025 1:34 PM EST us Gregg Chavez MD LAB BLOOD ORDERABLES Final Resul t Performing Organization Address City/[facility]/ZIP Co de Phone Number [facility] [address] [place] [address], [place] [phone] * Luteinizing hormone (04/16/2025 9:10 AM EST) Luteinizing Hormone 4.8 1.5 - 9.3 mIU/mL 04/16/2025 2:43 PM EST [facility] Blood Venous blood specimen / Unknown 04/16/2025 9:10 AM EST 04/16/2025 1:34 PM EST us Gregg Chavez MD LAB BLOOD ORDERABLES Final Resul t Performing Organization Address City/[facility]/ZIP Co de Phone Number [facility] [address] [place] [address], [place] [phone] * Follicle stimulating hormone (04/16/2025 9:10 AM EST) Follicle Stimulating Hormone 5.4 1.4 - 18.1 mIU/mL 04/16/2025 2:44 PM EST [facility] Blood Venous blood specimen / Unknown 04/16/2025 9:10 AM EST 04/16/2025 1:34 PM EST us Gregg Chavez MD LAB BLOOD ORDERABLES Final Resul t [facility] [address] [place] [address], from Last 3 Months Insurance [facility] Care Teams Director Public Service Relationship Specialty Start Date End Date Ashley Fam MD [address] [place] [address] PCP - General Internal Medicine 06/15/24
--- OUTSIDE RECORDS SUMMARY | 2025-04-16 16:14 | XMS_ITS | Clinical Summary ---
Author Organization [facility] Address [address] [id number] Care Team Providers Care Commercial Pest Control Representative Name Role Phone Ashley Fam Primary Care Provider [phone] Allergies Active Allergy Reactions Criticality Noted Date [...] of 2 - PCV) 06/09/2010 06/09/2009 RSV Vaccine (60+ years old and patients) (1 - Risk 50-74 years 1-dose series) 08/12/2013 Zoster Vaccines (1 of 2) 08/12/2013 DTaP,Tdap,and Td Vaccines (2 - Td or Tdap) 05/19/2023 05/19/2013 Alcohol/Substance Use Screening 04/30/2024 Depression Screening and Follow-Up 04/30/2024 Social Drivers of Health Annual Screening 04/30/2024 Influenza Vaccine (#1) 2024 3, 03/01/2022, 04/12/2021, Additional history exists COVID-19 Vaccine (3 - 2025-26 season) 2024 06/30/2020, 06/10/2020 Hepatitis B Vaccines Aged Out No long er eligible based on patient's age to complete this topic Insurance [facility] HMO/POS Care Teams Commercial Pest Control Representative Relationship Specialty Start Date End Date Ashley Fam [address] [place] [address] [address] [address] PCP - General 08/14/21
== END 2025-04-16 13:20 | disposition home or self-care (01) ==
LOC: HO.PMCPRC 12:25
PROVIDERS: PCP Internal Medicine; Visit Provider Internal Medicine
DX: M54.16 Radiculopathy, lumbar region (principal)
CPT/HCPCS: 99213